=== PATIENT | female | born 1985 | race Caucasian/White ===

== ENCOUNTER → 2018-05-28 | Outpatient (CLI) | payer OTHER, BC ==
--- NOTE | ~2018-05-28 | EKG ---
[address] [place] [address] ELECTROCARDIOGRAM REPORT Name: AARON SAHA [id number] Admission: 05/28/18 Attend Phys: Ryan Molina MD, F Discharge: Date of : 81 Report #: [id number] THIS REPORT FOR: //name// [facility] Test Date: 2018-05-28 Test Time: 11:54:43 Pat Name: AARON SAHA Department: Room: Gender: F [employer]ent S[employer]cer: JOSE : 1985 Requested By: Ryan Molina Order Number: [id number] MD: Kelvin Syed Measurements Intervals [place] Rate: 83 P: 23 ID: [id number] QRS: 34 QRSD: 95 T: 29 QT: 364 QTc: 428 Interpretive Statements Sinus rhythm No significant abnormality No previous ECG available for comparison Electronically Signed On 05-29-2018 8:11:42 [employer] by Kelvin Syed [email or web address] <ELECTRONICALLY SIGNED> By: Kelvin Syed MD, [facility] 05/29/18 0811 1154 1154 Kelvin Syed MD, FACC /EPI
== END ==
LOC: RAD 11:24
DX: Z01.818 Encounter for other preprocedural examination (principal)